=== PATIENT | male | born 1955 | race Two or more races ===

== ENCOUNTER 2019-11-14 23:04 | Emergency (ER) | payer SELFPAY ==
--- NOTE | 2019-11-14 23:11 | PC.NURSE ---
used video interpretation as soon as patient got here to get him registered.
[2019-11-14 23:12] VITALS: BP 00/00; PULSE 0; RESP 0; TEMP -17.7; TEMP 0; O2SAT 0; BMI 20.9
--- NOTE | 2019-11-14 23:23 | PC.NURSE ---
pt refused vitals and to give any history. per rn clinical coordinator pt was cussing and refusing care.
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
[2019-11-14 23:27] VITALS: BP 000/00; PULSE 0; RESP 0; TEMP -17.7; TEMP 0; O2SAT 0
== END 2019-11-14 23:30 | disposition home or self-care (01) ==
PROVIDERS: Emergency Provider Emergency Medicine
DX: Z00.8 Encounter for other general examination (principal)
CPT/HCPCS: 99282

== ENCOUNTER 2022-06-15 22:09 | Emergency (ER) | payer OTHER, SELFPAY ==
[2022-06-15 22:12] VITALS: BP 161/99; PULSE 82; RESP 18; TEMP 36.4; O2SAT 98; O2SAT 99; BMI 19.8
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
[2022-06-15 22:33] LABS: Basophils # 0.1 K/mm3 (0-0.2); Basophils % 0.6 % (0.1-2.0); Eosinophils # 0.1 K/mm3 (0.0-0.4); Eosinophils % 0.8 % (0.1-12.0); Hematocrit 42.1 % (42.0-52.0); Hemoglobin 13.9 g/dL (14.1-18.0); Lymphocytes # 1.6 K/mm3 (0.7-4.5); Lymphocytes % 14.6 % (10-50); Mean Corpuscular Hemoglobin 30.1 pg (27.0-31.2); Mean Platelet Volume 8.1 fl (7.4-10.4); Monocytes # 0.3 K/mm3 (0.1-1.0); Monocytes % 2.9 % (1.7-9.3); Neutrophils # 8.8 K/mm3 (1.8-7.8); Neutrophils % 81.1 % (37.0-80.0); Platelet Count 280 K/mm3 (142-424); Red Blood Count 4.63 M/mm3 (4.60-6.20); Red Cell Distribution Width 14.1 % (11.5-17.5); White Blood Count 10.8 K/mm3 (4.8-10.8)
[2022-06-15 22:40] LABS: Chloride 101 mmol/L (98-107); Potassium 4.1 mmoL/L (3.5-5.1); Sodium 135 mmol/L (136-145)
[2022-06-15 22:43] LABS: Alanine Aminotransferase 34 U/L (12-78); Albumin Level 4.6 g/dl (3.5-5.0); Albumin/Globulin Ratio 1.5 (1.1-1.8); Alkaline Phosphatase 134 U/L (38-126); Anion Gap 15.1 mEq/L (5-15); Aspartate Amino Transferase 37 U/L (17-59); Bilirubin,Total 0.3 mg/dl (0.2-1.3); Blood Urea Nitrogen 9 mg/dl (9-20); Carbon Dioxide 23 mmol/L (22.0-30.0); Creatinine Clearance Estimated 64 mL/min (50-200); Estimated Glomerular Filt Rate 97 ml/min (>60); GFR (African American) 117 ML/MIN (>60); Glucose 131 mg/dl (74-100); INR 0.95 (0.9-1.1); Prothrombin Time 10.3 seconds (10.1-12.5); Total Protein,Serum 7.6 g/dl (6.3-8.2)
[2022-06-15 22:44] LABS: Calcium 8.1 mg/dl (8.4-10.2)
--- NOTE | 2022-06-15 22:49 | PC.NURSE ---
pt to scan
--- NOTE | 2022-06-15 22:55 | PC.NURSE ---
pt back from scan
[2022-06-15 23:01] VITALS: BP 150/62; PULSE 76; RESP 18; O2SAT 98
[2022-06-15 23:37] VITALS: BP 160/80; PULSE 63; RESP 18; O2SAT 100
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
--- NOTE | 2022-06-15 23:57 | PC.NURSE ---
speaking with patient via language line Edyta [email or web address]
[2022-06-16] VITALS: BP 160/80; PULSE 65; RESP 18; TEMP 36.6; O2SAT 99
== END 2022-06-16 00:05 | disposition short-term general hospital (02) ==
PROVIDERS: Emergency Provider Student in an Organized Health Care Education/Training Program
DX: S22.41XA Multiple fractures of ribs, right side, initial encounter for closed fracture (principal); S22.42XA Multiple fractures of ribs, left side, initial encounter for closed fracture; F17.210 Nicotine dependence, cigarettes, uncomplicated; V03.10XA Pedestrian on foot injured in collision with car, pick-up truck or van in traffic accident, initial encounter
CPT/HCPCS: 70450; 71260; 72125; 72128; 72131; 73080; 74177; 80053; 85025; 85610; 99291; G0390; Q9967